=== PATIENT | male | born 1965 | race Caucasian/White ===

== ENCOUNTER 2017-11-19 23:28 | Emergency (ER) | payer OTHER ==
[~2017-11-19] VITALS: Ht 175.3 cm; Wt 101.2 kg
[2017-11-19 23:36] VITALS: BP 158/75
--- NOTE | 2017-11-19 23:40 | NUR ---
SENT BACK TO [facility] AMBUL[facility]ORY IN STABLE CONDITION,KILO NOTED.
--- NOTE | 2017-11-20 00:05 | NUR ---
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
[2017-11-20 00:28] LABS: BASOPHILS # (AUTO) 0.1 K/uL (0.00-0.22); BASOPHILS % (AUTO) 1.3 % (0.0-2.0); EOSINOPHILS # (AUTO) 0.3 K/uL (0-0.4); EOSINOPHILS % (AUTO) 3.8 % (0.0-4.0); HEMATOCRIT 46.8 % (36-52); HEMOGLOBIN 15.4 g/dL (12.0-18.0); LYMPHOCYTES # (AUTO) 0.9 K/uL (2.0-11.5); LYMPHOCYTES % (AUTO) 11.5 % (20.5-51.1); MEAN CORPUSCULAR HEMOGLOBIN 29 pg (27-31); MEAN CORPUSCULAR HGB CONC 33 g/dL (33-37); MEAN CORPUSCULAR VOLUME 88 fL (80-94); MONOCYTES # (AUTO) 0.6 K/uL (0.8-1.0); NEUTROPHILS # (AUTO) 6.1 K/uL (1.8-7.7); PLATELET COUNT (AUTO) 259 K/uL (140-450); RED BLOOD CELL COUNT(AUTO) 5.33 MIL/uL (4.20-6.10); RED CELL DISTRIBUTION WIDTH 12.6 % (11.6-13.7)
[2017-11-20 00:34] LABS: NEUTROPHILS % (AUTO) 75.4 % (42.2-75.2)
[2017-11-20 00:35] LABS: CARBON DIOXIDE 22.6 mmol/L (21-32)
[2017-11-20 00:36] LABS: ALBUMIN 3.4 g/dL (3.4-5.0); ANION GAP 13.4 (8-16); CREATININE 1.2 mg/dL (0.7-1.3); TOTAL BILIRUBIN 0.3 mg/dL (0.0-1.0)
--- NOTE | 2017-11-20 04:25 | NUR ---
Patient ambulated to bed 2. RN evaluating patient at bedside.
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
[2017-11-20] MEDS: KETOROLAC 60 MG/2 ML VIAL IM ONE (05:08)
[2017-11-20 05:48] VITALS: BP 142/80
--- NOTE | 2017-11-20 05:48 | NUR ---
Patient discharged with v/s stable. Written and verbal after care instructions given and explained. Patient alert, oriented and verbalized understanding of instructions. Ambulatory with steady gait. All questions addressed prior to discharge. ID band removed. Patient advised to follow up with PMD. Rx of ZOFRAN, MOTRIN AND IMODIUM given. Patient educated on indication of medication including possible reaction and side effects. Opportunity to ask questions provided and answered.
== END 2017-11-20 05:48 | disposition home or self-care (01) ==
LOC: MED 23:28
DX: R10.13 Epigastric pain (principal); R11.2 Nausea with vomiting, unspecified; R19.7 Diarrhea, unspecified; I10 Essential (primary) hypertension; F17.210 Nicotine dependence, cigarettes, uncomplicated
CPT/HCPCS: 36415; 80053; 83690; 85025; 96372; 99284; J1885

== ENCOUNTER 2018-02-03 04:05 | Emergency (ER) | payer OTHER ==
[~2018-02-03] VITALS: Ht 175.3 cm; Wt 100.7 kg
[2018-02-03 04:16] VITALS: BP 160/98
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
--- NOTE | 2018-02-03 04:43 | NUR ---
Patient being evaluated by physician at bedside.
[2018-02-03] MEDS ORDERED: KETOROLAC 60 MG/2 ML VIAL IM ONE (04:45)
[2018-02-03 05:09] VITALS: BP 159/96
--- NOTE | 2018-02-03 05:09 | NUR ---
Patient discharged with v/s stable. Written and verbal after care instructions given and explained. Patient alert, oriented and verbalized understanding of instructions. Ambulatory with steady gait. All questions addressed prior to discharge. ID band removed. Patient advised to follow up with PMD. Rx of CELEBREX 200MG given. Patient educated on indication of medication including possible reaction and side effects. Opportunity to ask questions provided and answered.
== END 2018-02-03 05:09 | disposition home or self-care (01) ==
LOC: MED 04:05
DX: M25.512 Pain in left shoulder (principal); G89.29 Other chronic pain; R03.0 Elevated blood-pressure reading, without diagnosis of hypertension; I10 Essential (primary) hypertension
CPT/HCPCS: 96372; 99283; J1885

== ENCOUNTER 2018-09-29 04:00 | Emergency (ER) | payer OTHER ==
[~2018-09-29] VITALS: Ht 175.3 cm; Wt 102.1 kg
[2018-09-29] MEDS ORDERED: IBUPROFEN 800 MG TAB PO ONE (04:15)
== END 2018-09-29 06:14 | disposition home or self-care (01) ==
LOC: MED 04:00
DX: S80.02XA Contusion of left knee, initial encounter (principal); S00.01XA Abrasion of scalp, initial encounter; I10 Essential (primary) hypertension; V09.20XA Pedestrian injured in traffic accident involving unspecified motor vehicles, initial encounter; Y93.I9 Activity, other involving external motion; Y92.488 Other paved roadways as the place of occurrence of the external cause; Y99.8 Other external cause status
CPT/HCPCS: 70450; 73562; 99284

== ENCOUNTER 2019-07-24 02:56 | Emergency (ER) | payer OTHER ==
[~2019-07-24] VITALS: Ht 175.3 cm; Wt 104.3 kg
[2019-07-24 02:56] VITALS: BP 160/90
--- NOTE | 2019-07-24 02:56 | NUR ---
PT TIA RYDER, PREBOOK. TAKEN TO CHAIR E
--- NOTE | 2019-07-24 03:17 | NUR ---
Dr. Mccormack examining patient.
--- NOTE | 2019-07-24 05:26 | NUR ---
PT RETURN FROM RAD
[2019-07-24] MEDS ORDERED: KETOROLAC 15 MG/ML VIAL IM ONE (05:55)
--- NOTE | 2019-07-24 06:26 | NUR ---
PT MOVED TO BED 8.
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
--- NOTE | 2019-07-24 06:49 | NUR ---
PT TAKEN TO RAD
--- NOTE | 2019-07-24 07:18 | NUR ---
BEDSIDE REPORT GIVEN TO GIANNI HAM. TRANSFER OF CARE AT THIS TIME.
[2019-07-24 07:19] LABS: ANION GAP 12.8 (8-16); CARBON DIOXIDE 26.1 mmol/L (21-32); CREATININE 1.1 mg/dL (0.7-1.3); POTASSIUM 3.9 mmol/L (3.5-5.1)
--- NOTE | 2019-07-24 07:19 | NUR ---
Received bedside report from GIANNI Gonzalez for continuation of care
[2019-07-24 07:23] LABS: PROTHROMBIN TIME 9.2 secs (10.8-13.4)
[2019-07-24 07:25] LABS: ALBUMIN 3.7 g/dL (3.4-5.0); TOTAL BILIRUBIN 0.5 mg/dL (0.0-1.0)
--- NOTE | 2019-07-24 07:30 | NUR ---
PT TAKEN TO CT
[2019-07-24 08:21] LABS: BASOPHILS % (AUTO) 0.3 % (0.0-2.0); EOSINOPHILS # (AUTO) 0.2 K/uL (0-0.4); EOSINOPHILS % (AUTO) 1.5 % (0.0-4.0); HEMATOCRIT 43.2 % (36-52); HEMOGLOBIN 14.6 g/dL (12.0-18.0); LYMPHOCYTES % (AUTO) 8.9 % (20.5-51.1); MEAN CORPUSCULAR HEMOGLOBIN 30 pg (27-31); MEAN CORPUSCULAR HGB CONC 34 g/dL (33-37); MEAN CORPUSCULAR VOLUME 87.8 fL (80-94); MONOCYTES # (AUTO) 0.5 K/uL (0.8-1.0); MONOCYTES % (AUTO) 4.6 % (1.7-9.3); NEUTROPHILS # (AUTO) 9.2 K/uL (1.8-7.7); NEUTROPHILS % (AUTO) 84.7 % (42.2-75.2); PLATELET COUNT (AUTO) 299 K/uL (140-450); RED BLOOD CELL COUNT(AUTO) 4.92 MIL/uL (4.20-6.10); RED CELL DISTRIBUTION WIDTH 13.7 % (11.6-13.7); WHITE BLOOD COUNT (AUTO) 10.9 K/uL (4.8-10.8)
[2019-07-24 09:02] VITALS: BP 162/104
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
--- NOTE | 2019-07-24 09:02 | NUR ---
18g IV TO R AC WAS REMOVED UPON DISCHARGE, CATHETER INTACT, BLEEDING CONTROLLED
== END 2019-07-24 08:55 ==
LOC: MED 02:56
DX: M25.512 Pain in left shoulder (principal); R07.81 Pleurodynia; I10 Essential (primary) hypertension; W18.39XA Other fall on same level, initial encounter; Y92.89 Other specified places as the place of occurrence of the external cause; Y93.89 Activity, other specified; Y99.8 Other external cause status
CPT/HCPCS: 36415; 70450; 71101; 71270; 72072; 72125; 73030; 74170; 80053; 83690; 84484; 85025; 85610; 93005; 96372; 99284; J1885; Q9967

== ENCOUNTER 2019-07-26 05:42 | Emergency (ER) | payer OTHER ==
[~2019-07-26] VITALS: Ht 175.3 cm; Wt 104.3 kg
[2019-07-26 05:48] VITALS: BP 159/96
--- NOTE | 2019-07-26 05:50 | NUR ---
PT AMBULATED TO BED 11.
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
[2019-07-26] MEDS ORDERED: KETOROLAC 60 MG/2 ML VIAL IM ONE (06:05)
--- NOTE | 2019-07-26 06:31 | NUR ---
Patient discharged with v/s stable. Pt was instructed to ice area and avoid strenuous activity. Written and verbal after care instructions given and explained. Patient alert, oriented and verbalized understanding of instructions. Ambulatory with steady gait. All questions addressed prior to discharge. ID band removed. Patient advised to follow up with PMD. Rx of TRAMADOL AND MOTRIN WAS given. Patient educated on indication of medication including possible reaction and side effects. Opportunity to ask questions provided and answered.
[2019-07-26 06:33] VITALS: BP 159/96
== END 2019-07-26 06:30 | disposition home or self-care (01) ==
LOC: MED 05:42
DX: S20.20XA Contusion of thorax, unspecified, initial encounter (principal); I10 Essential (primary) hypertension; Z02.89 Encounter for other administrative examinations; V19.9XXA Pedal cyclist (driver) (passenger) injured in unspecified traffic accident, initial encounter; Y93.89 Activity, other specified; Y92.89 Other specified places as the place of occurrence of the external cause; Y99.8 Other external cause status
CPT/HCPCS: 96372; 99283; J1885

== ENCOUNTER 2019-09-25 07:19 | Emergency (ER) | payer OTHER ==
[~2019-09-25] VITALS: Ht 175.3 cm; Wt 102.1 kg
[2019-09-25 07:25] VITALS: BP 182/112
--- NOTE | 2019-09-25 07:30 | NUR ---
Patient ambulated to bed 9. RN evaluating patient at bedside.
--- NOTE | 2019-09-25 07:45 | NUR ---
Dr. Lazo evaluating patient at bedside.
[2019-09-25] MEDS ORDERED: ACETAMINOPHEN 325 MG TAB PO ONE (07:50)
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
--- NOTE | 2019-09-25 08:02 | NUR ---
PY. TAKEN TO CT BY WHEELCHAIR
--- NOTE | 2019-09-25 08:50 | NUR ---
Dr. Lazo re-evaluating patient at bedside.
[2019-09-25 09:13] VITALS: BP 154/94
--- NOTE | 2019-09-25 09:13 | NUR ---
Patient discharged with v/s stable. Written and verbal after care instructions given and explained. Patient alert, oriented and verbalized understanding of instructions. Ambulatory with steady gait. All questions addressed prior to discharge. ID band removed. Patient advised to follow up with PMD. Rx of IBOPRUFEN given. Patient educated on indication of medication including possible reaction and side effects. Opportunity to ask questions provided and answered.
== END 2019-09-25 09:13 | disposition home or self-care (01) ==
LOC: MED 07:19
DX: S80.01XA Contusion of right knee, initial encounter (principal); S00.01XA Abrasion of scalp, initial encounter; I10 Essential (primary) hypertension; F17.210 Nicotine dependence, cigarettes, uncomplicated; Z96.612 Presence of left artificial shoulder joint; Z71.6 Tobacco abuse counseling; V27.4XXA Motorcycle driver injured in collision with fixed or stationary object in traffic accident, initial encounter; Y93.55 Activity, bike riding; Y92.410 Unspecified street and highway as the place of occurrence of the external cause; Y99.8 Other external cause status
CPT/HCPCS: 70450; 99284

== ENCOUNTER 2020-01-05 06:43 | Emergency (ER) | payer OTHER ==
[~2020-01-05] VITALS: Ht 175.3 cm; Wt 102.1 kg
[2020-01-05 06:50] VITALS: BP 158/81
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
--- NOTE | 2020-01-05 07:18 | NUR ---
XRAY AT BEDSIDE
--- NOTE | 2020-01-05 07:19 | NUR ---
Pt report given to BOBBY ARCHER. Transfer of care at this time.
--- NOTE | 2020-01-05 07:52 | NUR ---
Dr. Ross is evaluating the patient at bedside.
[2020-01-05 08:06] VITALS: BP 158/81
--- NOTE | 2020-01-05 08:06 | NUR ---
Patient discharged by Dr. Ross with v/s stable. Written and verbal after care instructions given and explained. Patient alert, oriented and verbalized understanding of instructions. Ambulatory with steady gait. All questions addressed prior to discharge. ID band removed. Patient advised to follow up with PMD. Rx of Naprosyn 500mg given. Patient educated on indication of medication including possible reaction and side effects. Opportunity to ask questions provided and answered.
== END 2020-01-05 08:06 | disposition home or self-care (01) ==
LOC: MED 06:43
DX: S43.101A Unspecified dislocation of right acromioclavicular joint, initial encounter (principal); I10 Essential (primary) hypertension; Z98.890 Other specified postprocedural states; V89.9XXA Person injured in unspecified vehicle accident, initial encounter; Y93.89 Activity, other specified; Y92.89 Other specified places as the place of occurrence of the external cause; Y99.8 Other external cause status
CPT/HCPCS: 73030; 99283; Q0092

== ENCOUNTER 2020-01-08 06:57 | Emergency (ER) | payer OTHER ==
[~2020-01-08] VITALS: Ht 175.3 cm; Wt 102.1 kg
[2020-01-08 07:00] VITALS: BP 157/100
--- NOTE | 2020-01-08 07:00 | NUR ---
TO BED # 07 AMBULATORY
--- NOTE | 2020-01-08 07:08 | NUR ---
Dr. Kaufman examining patient.
--- NOTE | 2020-01-08 07:10 | NUR ---
Dr. Kaufman at bedside.
--- NOTE | 2020-01-08 07:19 | NUR ---
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
--- NOTE | 2020-01-08 07:30 | NUR ---
ABOVE CHARTING DONE BY BRIANDA GAVIN RN
--- NOTE | 2020-01-08 07:55 | NUR ---
XR AT BEDSIDE.
--- NOTE | 2020-01-08 08:23 | NUR ---
APPLIED RAFAEL WRAP TO RIGHT ANKLE WITHOUT ANY ISSUES
[2020-01-08 08:29] VITALS: BP 142/82
--- NOTE | 2020-01-08 08:30 | NUR ---
APPLIED RAFAEL WRAP TO RIGHT ANKLE-WNL/GOOD PMD NOTED POST RAFAEL WRAP
== END 2020-01-08 08:25 | disposition home or self-care (01) ==
LOC: MED 06:57
DX: M25.571 Pain in right ankle and joints of right foot (principal); I10 Essential (primary) hypertension; V23.4XXA Motorcycle driver injured in collision with car, pick-up truck or van in traffic accident, initial encounter; Y93.89 Activity, other specified; Y92.89 Other specified places as the place of occurrence of the external cause; Y99.8 Other external cause status
CPT/HCPCS: 73610; 73630; 99284; Q0092

== ENCOUNTER 2020-02-21 20:19 | Emergency (ER) | payer OTHER ==
[~2020-02-21] VITALS: Ht 175.3 cm; Wt 103.4 kg
[2020-02-21 20:25] VITALS: BP 176/87
--- NOTE | 2020-02-21 20:31 | NUR ---
PT AMBULATED TO BED #5
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
[2020-02-21] MEDS ORDERED: LIDOCAINE 2% 1000 MG/50 ML VIAL INJ ONE (21:05)
--- NOTE | 2020-02-21 21:08 | NUR ---
PT TAKEN TO CT
--- NOTE | 2020-02-21 21:15 | NUR ---
pt returned back from ct.
[2020-02-21 22:20] VITALS: BP 176/87
--- NOTE | 2020-02-21 22:20 | NUR ---
Patient discharged with v/s stable. Written and verbal after care instructions given and explained. Patient verbalized understanding. Ambulatory with steady gait. All questions addressed prior to discharge. Advised to follow up with PMD.
== END 2020-02-21 22:20 | disposition home or self-care (01) ==
LOC: MED 20:19
DX: S01.81XA Laceration without foreign body of other part of head, initial encounter (principal); I10 Essential (primary) hypertension; V27.4XXA Motorcycle driver injured in collision with fixed or stationary object in traffic accident, initial encounter; Y93.55 Activity, bike riding; Y92.89 Other specified places as the place of occurrence of the external cause; Y99.8 Other external cause status
CPT/HCPCS: 12011; 70450; 99284; J2001

== ENCOUNTER 2020-03-29 06:29 | Emergency (ER) | payer OTHER ==
[~2020-03-29] VITALS: Ht 175.3 cm; Wt 102.1 kg
[2020-03-29 06:44] VITALS: BP 159/94
--- NOTE | 2020-03-29 06:51 | NUR ---
PT AMBULATED TO BED 11 WITH STEADY GAIT
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
--- NOTE | 2020-03-29 07:07 | NUR ---
CHANGE OF SHIFT REPORT TO BC ARCHER.
--- NOTE | 2020-03-29 07:07 | NUR ---
DR REA AT BEDSIDE EVALUATING PATIENT.
[2020-03-29] MEDS ORDERED: ONDANSETRON 4 MG ODT PO ONE (07:10)
[2020-03-29] MEDS ORDERED: HYDROcodone/APAP 5/325 MG 1 TAB TAB PO ONE (07:10)
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
--- NOTE | 2020-03-29 07:12 | NUR ---
PT NOT ACTIVELY VOMITING AT THIS TIME. STATES HE FEELS "TIRED" PALPABLE RADIAL AND PEDAL PULES. 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 +ROM TO EXTREMETIES.
--- NOTE | 2020-03-29 07:19 | NUR ---
NORCO AND ZOFRAN PO ADMINISTERED.
--- NOTE | 2020-03-29 07:21 | NUR ---
PT TO CT VIA TAMELA
--- NOTE | 2020-03-29 07:41 | NUR ---
PT RETURNED FROM XRAY AND CT
--- NOTE | 2020-03-29 07:43 | NUR ---
PT REPORTS NO NAUSEA AND PAIN 4/10 TO ABRASION SITES.
--- NOTE | 2020-03-29 09:07 | NUR ---
WOUND CARE COMPLETED
[2020-03-29] MEDS ORDERED: BACITRACIN OINT 500 UNITS/GM PKT TP ONE (09:25)
--- NOTE | 2020-03-29 09:42 | NUR ---
XEROFORM APPLED TO R ANKLE BY CORRINE EMT BACITRACIN APPLIED TO L KNEE, WRAPPED WITH NON-ADHERENT DRESSING PULSES WNL
--- NOTE | 2020-03-29 09:54 | NUR ---
PT CAN BEAR WEIGHT ON BOTH HIS R ANKLE AND L KNEE, STATES HE DOES NOT WANT CRUTCHES
[2020-03-29 09:55] VITALS: BP 134/77
--- NOTE | 2020-03-29 09:55 | NUR ---
Patient discharged with v/s stable. Written and verbal after care instructions given and explained. Patient alert, oriented and verbalized understanding of instructions. Ambulatory with steady gait. All questions addressed prior to discharge. ID band removed. Patient advised to follow up with PMD. Rx of KEFLEX, NORCO, ACETAMINOPHEN, ZOFRAN given. Patient educated on indication of medication including possible reaction and side effects. Opportunity to ask questions provided and answered. PT INSTRUCTED TO NOT DRIVE AFTER TAKING NORCO IT MAY CAUSE DROWSINESS AND IMPAIR DRIVING PT INSTRUCTED TO KEEP ABRASION CLEAN AND DRY, AND TO APPLY TOPICAL BACITRACIN OR NEOSPORIN NEEDED
== END 2020-03-29 09:55 | disposition home or self-care (01) ==
LOC: MED 06:29
DX: S06.0X0A Concussion without loss of consciousness, initial encounter (principal); S80.212A Abrasion, left knee, initial encounter; S90.511A Abrasion, right ankle, initial encounter; I10 Essential (primary) hypertension; F17.200 Nicotine dependence, unspecified, uncomplicated; Z98.890 Other specified postprocedural states; V19.9XXA Pedal cyclist (driver) (passenger) injured in unspecified traffic accident, initial encounter; Y93.89 Activity, other specified; Y92.89 Other specified places as the place of occurrence of the external cause; Y99.8 Other external cause status
CPT/HCPCS: 70450; 71045; 73562; 73610; 99284; Q0162

== ENCOUNTER 2021-06-17 09:58 | Emergency (ER) | payer OTHER ==
[~2021-06-17] VITALS: Ht 175.3 cm; Wt 109.8 kg
[2021-06-17 10:05] VITALS: BP 200/99
--- NOTE | 2021-06-17 10:17 | NUR ---
DR KILGORE AT BEDSIDE EVALUATING PT
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
--- NOTE | 2021-06-17 10:38 | NUR ---
pt wound dressed with pressure dressing via ermd
[2021-06-17 11:00] VITALS: BP 200/99
== END 2021-06-17 11:01 | disposition home or self-care (01) ==
LOC: MED 09:58
DX: S81.812A Laceration without foreign body, left lower leg, initial encounter (principal); F17.200 Nicotine dependence, unspecified, uncomplicated; I10 Essential (primary) hypertension; Z71.6 Tobacco abuse counseling; Z98.890 Other specified postprocedural states; W26.0XXA Contact with knife, initial encounter; Y93.89 Activity, other specified; Y92.89 Other specified places as the place of occurrence of the external cause; Y99.8 Other external cause status
CPT/HCPCS: 99281

== ENCOUNTER 2021-06-19 13:23 | Emergency (ER) | payer OTHER ==
[~2021-06-19] VITALS: Ht 170.2 cm; Wt 127.0 kg
[2021-06-19 13:26] VITALS: BP 161/100
[2021-06-19 14:28] VITALS: BP 158/95
== END 2021-06-19 14:28 | disposition home or self-care (01) ==
LOC: MED 13:23
DX: I87.2 Venous insufficiency (chronic) (peripheral) (principal); I10 Essential (primary) hypertension
CPT/HCPCS: 99282; 99283

== ENCOUNTER 2021-10-13 02:34 | Emergency (ER) | payer OTHER ==
[~2021-10-13] VITALS: Ht 175.3 cm; Wt 109.3 kg
[2021-10-13 02:42] VITALS: BP 165/101
[2021-10-13] MEDS ORDERED: CEPH-588 PO (03:49)
[2021-10-13] MEDS ORDERED: CIPR500T4 PO (03:49)
[2021-10-13] MEDS ORDERED: cephALEXin 500 MG CAP PO ONE (03:50)
[2021-10-13] MEDS ORDERED: CIPROFLOXACIN 250 MG TAB PO ONE (03:50)
[2021-10-13 04:28] VITALS: BP 132/72
== END 2021-10-13 04:32 | disposition home or self-care (01) ==
LOC: MED 02:34
DX: S91.332A Puncture wound without foreign body, left foot, initial encounter (principal); L03.116 Cellulitis of left lower limb; I10 Essential (primary) hypertension; Z79.2 Long term (current) use of antibiotics; W22.8XXA Striking against or struck by other objects, initial encounter; Y93.89 Activity, other specified; Y92.89 Other specified places as the place of occurrence of the external cause; Y99.8 Other external cause status
CPT/HCPCS: 90471; 90715; 99283

== ENCOUNTER 2021-12-15 05:19 | Emergency (ER) | payer OTHER ==
[~2021-12-15] VITALS: Ht 175.3 cm; Wt 109.9 kg
[~2021-12-15 05:19] MED LIST: CEPH-588 PO; CIPR500T4 PO
[2021-12-15 05:50] VITALS: BP 191/103
== END 2021-12-15 06:27 | disposition left against medical advice (07) ==
LOC: MED 05:19
DX: K08.89 Other specified disorders of teeth and supporting structures (principal); Z53.21 Procedure and treatment not carried out due to patient leaving prior to being seen by health care provider

== ENCOUNTER 2022-04-25 02:54 | Inpatient (IN) | payer OTHER ==
[~2022-04-25] VITALS: Ht 175.3 cm; Wt 110.2 kg
[2022-04-25 02:55] VITALS: BP 162/90
[2022-04-25] MEDS ORDERED: AMPICILLIN/SULBACTAM 3 GM in NACL 0.9% 100 ML IV ONE (03:50)
[2022-04-25] MEDS ORDERED: AMPICILLIN/SULBACTAM 3 GM VIAL ONE ×2 (03:54→21:01)
[2022-04-25 04:49] LABS: APPEARANCE,URINE CLEAR (CLEAR); BILIRUBIN,URINE NEGATIVE (NEGATIVE); BLOOD, URINE NEGATIVE (NEGATIVE); COLOR,URINE YELLOW (YELLOW); LEUKOCYTE ESTERASE ,URINE NEGATIVE (NEGATIVE); NITRITE, URINE NEGATIVE (NEGATIVE); UGLUCOSE NEGATIVE (NEGATIVE)
[2022-04-25 05:02] LABS: WBC,URINE 0-5 /HPF (0-5)
[2022-04-25 05:17] LABS: ALBUMIN 3.6 g/dL (3.4-5.0); ANION GAP 10.7 (8-16); CARBON DIOXIDE 29.2 mmol/L (21-32); CREATININE 1.1 mg/dL (0.6-1.3); POTASSIUM 3.9 mmol/L (3.5-5.1); TOTAL BILIRUBIN 0.6 mg/dL (0.0-1.0)
[2022-04-25 05:42] LABS: BASOPHILS % (AUTO) 0.5 % (0.0-2.0); EOSINOPHILS # (AUTO) 0.3 K/uL (0-0.4); EOSINOPHILS % (AUTO) 2.9 % (0.0-4.0); HEMATOCRIT 44.9 % (36-52); HEMOGLOBIN 15.1 g/dL (12.0-18.0); LYMPHOCYTES # (AUTO) 1.3 K/uL (2.0-11.5); LYMPHOCYTES % (AUTO) 14.1 % (20.5-51.1); MEAN CORPUSCULAR HEMOGLOBIN 29 pg (27-31); MEAN CORPUSCULAR HGB CONC 34 g/dL (33-37); MEAN CORPUSCULAR VOLUME 86.8 fL (80-94); MONOCYTES # (AUTO) 0.9 K/uL (0.8-1.0); MONOCYTES % (AUTO) 8.9 % (1.7-9.3); NEUTROPHILS % (AUTO) 73.6 % (42.2-75.2); PLATELET COUNT (AUTO) 286 K/uL (140-450); RED BLOOD CELL COUNT(AUTO) 5.17 MIL/uL (4.20-6.10); WHITE BLOOD COUNT (AUTO) 9.6 K/uL (4.8-10.8)
[2022-04-25] MEDS ORDERED: MORPHINE SULFATE 2 MG/ML SYR IVP PRN (07:45)
[2022-04-25] MEDS ORDERED: ACETAMINOPHEN 325 MG TAB PO PRN (07:45)
[2022-04-25] MEDS ORDERED: ONDANSETRON 4 MG/2 ML VIAL IVP PRN (07:45)
[2022-04-25] MEDS ORDERED: VANCOMYCIN PER PHARMACY MC PRN (07:50)
[2022-04-25] MEDS: VANCOMYCIN 750 MG in DEXTROSE 5% 250 ML IV SCH ×2 (10:27→18:30)
[2022-04-25] MEDS ORDERED: AMPICILLIN/SULBACTAM 3 GM in NACL 0.9% 100 ML IV SCH (18:00)
[2022-04-25] MEDS: AMPICILLIN/SULBACTAM 3 GM in NACL 0.9% 100 ML IV SCH (21:08)
[2022-04-26] VITALS: BP 139/73
[2022-04-26] MEDS ORDERED: VANCOMYCIN 1,000 MG VIAL ONE (01:16)
[2022-04-26] MEDS: VANCOMYCIN 750 MG in DEXTROSE 5% 250 ML IV SCH (01:34)
[2022-04-26] MEDS ORDERED: AMPICILLIN/SULBACTAM 3 GM VIAL ONE (03:15)
[2022-04-26] MEDS: AMPICILLIN/SULBACTAM 3 GM in NACL 0.9% 100 ML IV SCH ×3 (03:38→14:59)
[2022-04-26 07:11] LABS: BASOPHILS # (AUTO) 0.1 K/uL (0.00-0.22); BASOPHILS % (AUTO) 0.7 % (0.0-2.0); EOSINOPHILS # (AUTO) 0.3 K/uL (0-0.4); EOSINOPHILS % (AUTO) 4.5 % (0.0-4.0); HEMATOCRIT 45.2 % (36-52); LYMPHOCYTES # (AUTO) 1.3 K/uL (2.0-11.5); MEAN CORPUSCULAR HEMOGLOBIN 29 pg (27-31); MEAN CORPUSCULAR HGB CONC 33 g/dL (33-37); MEAN CORPUSCULAR VOLUME 87.7 fL (80-94); MONOCYTES # (AUTO) 0.8 K/uL (0.8-1.0); MONOCYTES % (AUTO) 10.7 % (1.7-9.3); NEUTROPHILS # (AUTO) 4.8 K/uL (1.8-7.7); NEUTROPHILS % (AUTO) 66.1 % (42.2-75.2); PLATELET COUNT (AUTO) 278 K/uL (140-450); RED BLOOD CELL COUNT(AUTO) 5.16 MIL/uL (4.20-6.10); RED CELL DISTRIBUTION WIDTH 14.3 % (11.6-13.7); WHITE BLOOD COUNT (AUTO) 7.3 K/uL (4.8-10.8)
[2022-04-26 07:20] LABS: ANION GAP 9.4 (8-16); CARBON DIOXIDE 28.9 mmol/L (21-32); CREATININE 1.1 mg/dL (0.6-1.3); MAGNESIUM 2.3 mg/dL (1.8-2.4); POTASSIUM 4.3 mmol/L (3.5-5.1); TOTAL BILIRUBIN 0.4 mg/dL (0.0-1.0)
[2022-04-26 08:00] VITALS: BP 159/80
[2022-04-26] MEDS ORDERED: VANCOMYCIN 1,000 MG in DEXTROSE 5% 250 ML IV SCH (11:35)
[2022-04-26] MEDS ORDERED: hydrALAZINE 25 MG TAB PO PRN (13:10)
== END 2022-04-26 15:57 | disposition home or self-care (01) | DRG 383 ==
LOC: MED 02:54 → MMU 07:47 → MTU 19:47
PROVIDERS: ADMIT Hospitalist; ATTEND Hospitalist
DX: L03.211 Cellulitis of face (principal); I10 Essential (primary) hypertension; J36 Peritonsillar abscess; K08.89 Other specified disorders of teeth and supporting structures; K40.90 Unilateral inguinal hernia, without obstruction or gangrene, not specified as recurrent; Z87.891 Personal history of nicotine dependence; Z79.899 Other long term (current) drug therapy; Z20.822 Contact with and (suspected) exposure to COVID-19; J01.80 Other acute sinusitis
CPT/HCPCS: 36415; 70486; 80053; 80202; 81001; 83605; 83735; 85025; 87040; 87070; 87075; 87081; 87205; J0295; J3370; J7060

== ENCOUNTER 2024-03-13 06:34 | Emergency (ER) | payer OTHER ==
[~2024-03-13] VITALS: Ht 167.6 cm; Wt 104.3 kg
[2024-03-13 06:35] VITALS: BP 179/102; PULSE 85; RESP 18; TEMP 97; O2SAT 98
[2024-03-13] MEDS: BACITRACIN OINT 500 UNITS/GM PKT TP ONE (07:29)
[2024-03-13 07:30] VITALS: TEMP 97
[2024-03-13] MEDS ORDERED: BACI-418 TP (08:39)
[2024-03-13 08:50] VITALS: BP 169/82; PULSE 73; RESP 16; O2SAT 98
== END 2024-03-13 08:50 | disposition home or self-care (01) ==
LOC: MED 06:34
DX: S00.81XA Abrasion of other part of head, initial encounter (principal); I10 Essential (primary) hypertension; W01.0XXA Fall on same level from slipping, tripping and stumbling without subsequent striking against object, initial encounter; Y93.89 Activity, other specified; Y92.480 Sidewalk as the place of occurrence of the external cause; Y99.8 Other external cause status
CPT/HCPCS: 70450; 70486; 99284